=== PATIENT | male | born 1955 | race Caucasian/White ===

== ENCOUNTER 2023-03-12 18:53 | Emergency (ER) | payer MEDICARE, SELFPAY ==
[2023-03-12 18:59] VITALS: BP 163/78; PULSE 87; RESP 18; TEMP 36.4; O2SAT 99; BMI 31.3
--- NOTE | 2023-03-12 19:07 | ECG_ITS ---
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 Measurements Intervals [place] Rate: 68 P: 48 ND: 126 QRS: 18 QRSD: 93 T: 53 QT: 385 QTc: 410 Interpretive Statements SINUS RHYTHM POSSIBLE LEFT ATRIAL ENLARGEMENT [-0.1mV P-WAVE IN V1/V2] SEPTAL MYOCARDIAL INFARCTION , PROBABLY OLD [40+ ms Q WAVE IN V1/V2] No previous ECG available for comparison Electronically Signed On 03-15-2023 6:15:38 CDT by Cyn Rivera M.D. [id number] f
--- NOTE | 2023-03-12 19:24 | XRR_ITS ---
PROCEDURE INFORMATION: Exam: XR Chest Exam date and time: 03/12/2023 7:52 PM Age: 67 years old Clinical indication: Pain; Chest pressure; Additional info: Cp TECHNIQUE: Imaging protocol: Radiologic exam of the chest. Views: 1 view. COMPARISON: No relevant prior studies available. FINDINGS: Lungs: Lungs are clear bilaterally. Pleural spaces: No pleural effusion. No pneumothorax. Heart/Mediastinum: The cardiac silhouette and mediastinal contours are unremarkable. Bones/joints: Unremarkable for age. XR/XR chest 1V portable [id number] IMPRESSION: No acute cardiopulmonary process.
--- NOTE | 2023-03-12 19:37 | W.ED.CHESTPA ---
HPI - Chest Pain General: Chief Complaint: Chest Pain Stated Complaint: Chest Pain Time Seen by Provider: 03/12/23 19:23 Source: patient Mode of arrival: ambulatory Limitations: no limitations History of Present Illness: 67-year-old male who states that he started having some epigastric pain earlier today states had a history of pancreatitis he also has reflux he states he was belching a lot he states the pain is kind of moved up to his chest but is a burning pain rates pain a 6 out of 10 currently denies any worsening proving factors he had some nausea denies any vomiting. Associated symptoms: Reports abdominal pain and nausea; Deny dyspnea, fever(s) or vomiting Review of Systems Const: Denies: fever(s), chills, body aches or change in appetite Eyes: Denies: blurry vision or eye discomfort ENMT: Denies: throat pain or dental pain Card: Reports: chest pain Resp: Denies: dyspnea GI: Reports: abdominal pain and nausea; Denies: vomiting or diarrhea : Denies: dysuria Musc: Denies: neck pain or back pain Skin/Breast: Denies: rash Neuro: Denies: headache(s) Alfred/Lymph: Denies: easy bruising PFSH ED PFSH: Social History (Updated 03/12/23 @ 19:41 by Ana Cristina Hays MD) Substance/Drug Use: never Physical Exam Const: COMMON NORMALS: no acute distress, patient oriented x3 and healthy appearing HENMT: COMMON NORMALS: normocephalic and atraumatic HEAD & SCALP: normocephalic and atraumatic Eye: COMMON NORMALS: Equal, round and reactive pupils present and EOMs intact bilaterally PUPIL: Yes Equal, round and reactive pupils present Neck/C-Spine: COMMON NORMALS: full ROM and supple Chest: COMMONS NORMALS: normal inspection of the chest and normal palpation of entire chest wall Resp: COMMON NORMALS: normal respiratory effort, No retractions, No use of accessory muscles and clear to auscultation bilaterally AUSCULTATION: clear to auscultation bilaterally Cardio: COMMON NORMALS: regular rate, regular rhythm and No murmurs present (Cardio) RATE: regular rate RHYTHM: regular rhythm GI: COMMON NORMALS: Normal to inspection, nondistended, normoactive bowel sounds present, Soft to palpation, non-tender and no masses PALPATION: Yes Soft to palpation Extremity: COMMON NORMALS: normal to inspection and full ROM Neuro: COMMON NORMALS: patient oriented x3, moves all extremities and no focal motor deficits Psych: COMMON NORMALS: mental status grossly normal, Normal thought process present and cooperative THOUGHT PROCESS: Normal thought process present Skin: COMMON NORMALS: no rashes or lesions noted and no wounds GENERAL SKIN EXAM: no rashes or lesions noted Course Vital Signs: Vital signs: Vital Signs Temperature 98.3 F 03/12/23 20:24 Pulse Rate 68 03/12/23 20:24 Respiratory Rate 17 03/12/23 20:24 Blood Pressure 175/88 03/12/23 20:24 Pulse Oximetry 96 03/12/23 20:24 Oxygen Delivery Me thod Room Air 03/12/23 20:24 MDM - Chest Pain Medical Decision Making Patient presents with epigastric abdominal pain likely gastritis he is no signs of acute coronary syndrome his troponins EKGs are normal CT of his abdomen is normal as well. He feels improved here he is stable for discharge he is to take Protonix every lana hydrocodone and Zofran he is to follow-up with PCP in 3 to 4 days and return if worsening. Lab Data 03/12/23 19:40 03/12/23 19:40 Radiology Impressions Chest X-Ray 03/12/23 19:24 IMPRESSION: No acute cardiopulmonary process. Abdomen/Pelvis CT 03/12/23 21:36 IMPRESSION: 1. No acute abnormality in the abdomen or pelvis. 2. Incidental/nonacute findings are listed in the report. COMMENTS: Consistent with the [place] [employer]'s Incidental Findings Committee white paper (J Am Joseph Radiol 2018): Any incidental renal lesion less than 1 cm or classified as too small to characterize, or any incidental cystic renal lesion characterized as simple-appearing, is likely benign. No follow-up imaging is recommended for these lesions per consensus recommendations based on imaging criteria. Laboratory Results WBC 12.1 10^3/uL (4.0-10.0) H 03/12/23 19:40 RBC 4.82 10^6/uL (4.1-5.3) 03/12/23 19:40 Hgb 14.9 g/dL (11.7-16.6) 03/12/23 19:40 Hct 43.9 % (42.0-52.0) 03/12/23 19:40 MCV 91.1 fl (80-94) 03/12/23 19:40 MCH 30.9 pg (28.0-34.0) 03/12/23 19:40 MCHC 33.9 g/dL (30.0-36.0) 03/12/23 19:40 RDW 12.2 % (12.1-15.1) 03/12/23 19:40 Plt Count 279 10^3/cmm (130-400) 03/12/23 19:40 MPV 9.5 fL (7.4-10.4) 03/12/23 19:40 Neut % (Auto) 87.5 % 03/12/23 19:40 Lymph % (Auto) 7.4 % 03/12/23 19:40 [place] % (Auto) 4.3 % 03/12/23 19:40 Eos % (Auto) 0.3 % 03/12/23 19:40 Baso % (Auto) 0.2 % 03/12/23 19:40 Neut # (Auto) 10.56 10^3/uL (1.8-7.7) H 03/12/23 19:40 Lymph # (Auto) 0.9 10^3/uL (0.8-4.8) 03/12/23 19:40 [place] # (Auto) 0.5 10^3/uL (0.2-0.9) 03/12/23 19:40 Eos # (Auto) 0.0 10^3/uL (0.0-0.8) 03/12/23 19:40 Baso # (Auto) 0.0 10^3/uL (0.0-0.1) 03/12/23 19:40 Nucleated RBC % (auto) 0 % 03/12/23 19:40 Nucleated RBCs # 0.0 /100WBC 03/12/23 19:40 Sodium 136 mmol/L (136-145) 03/12/23 19:40 Potassium 4.2 mmol/L (3.5-5.1) 03/12/23 19:40 Chloride 96 mmol/L (98-107) L 03/12/23 19:40 Carbon Dioxide 24 mmol/L (22-29) 03/12/23 19:40 Anion Gap 20.2 (5-19) H 03/12/23 19:40 BUN 25 mg/dL (8-23) H 03/12/23 19:40 Creatinine 1.3 mg/dL (0.7-1.2) H 03/12/23 19:40 GFR Calculation 55.1 mL/min (90-130) L 03/12/23 19:40 Glucose 179 mg/dL (65-115) H 03/12/23 19:40 Calculated Osmolality 291 mOsm/kg (285-295) 03/12/23 19:40 Calcium 9.6 mg/dL (8.5-10.5) 03/12/23 19:40 Total Bilirubin 0.7 mg/dL (0.15-1.2) 03/12/23 19:40 AST 21 U/L (0-40) 03/12/23 19:40 ALT 18 U/L (0-41) 03/12/23 19:40 Alkaline Phosphatase 69 U/L (40-130) 03/12/23 19:40 Troponin T Baseline 6 ng/L (0-15) 03/12/23 19:40 Troponin T 120 Minute 7.06 ng/L (0-15) 03/12/23 21:37 Delta Troponin T 1.06 ABS# (0-10) 03/12/23 21:37 Total Protein 7.8 g/dL (6.6-8.7) 03/12/23 19:40 Albumin 5.0 g/dL (3.5-5.2) 03/12/23 19:40 Globulin 2.8 g/dL (1.3-4.6) 03/12/23 19:40 Lipase 19 U/L (13-60) 03/12/23 19:40 EKG Data EKG 1: I personally reviewed and interpreted this EKG as follows: EKG interpretation date: 03/12/23 EKG interpretation time: 19:03 Interpretation: nsr hr [address] or t wave abnormalities qrs 93 qtc 402 Discharge Plan Discharge Patient Disposition: Home Clinical Impression: Chest pain, Abdominal pain Condition: Stable Prescriptions: New hydrocodone-acetaminophen 5-325 mg tablet 1 tab PO Q6H PRN (Reason: pain) Qty: 14 0RF Protonix 40 mg tablet,delayed release (DR/EC) 40 mg PO DAILY Qty: 60 0RF ondansetron 4 mg tablet,disintegrating 4 mg PO Q6H PRN (Reason: nausea and vomiting) Qty: 14 0RF Discharge Orders: Discharge ED (Routine); Ordered 03/12/23 Ordered By: Ana Cristina Hays Referrals: Gordo Ayala [Primary Care Provider] - Discharge Diet: Advance as tolerated Discharge Activity: Resume usual activity Patient Instructions: Chest Pain (ED), Abdominal Pain (ED), Opioid Safety Coding Level of Care Code ED Operations Team Leader for Celeste Haq
[2023-03-12] MEDS: ondansetron 2 mg/ML SDV 2 mL 4 MG IVP (19:44)
[2023-03-12] MEDS: lidocaine 2% viscous 15 ML, aluminum-mag hydrox-simethicon 30 ML, sucralfate oral liq 1 GM PO (19:45)
[2023-03-12 19:56] LABS: Basophils % 0.2 %; Eosinophils % 0.3 %; Hematocrit 43.9 % (42.0-52.0); Hemoglobin 14.9 g/dL (11.7-16.6); Lymphocytes # 0.9 10^3/uL (0.8-4.8); Lymphocytes % 7.4 %; Mean Corpuscular HGB Conc 33.9 g/dL (30.0-36.0); Mean Corpuscular Hemoglobin 30.9 pg (28.0-34.0); Mean Corpuscular Volume 91.1 fl (80-94); Mean Platelet Volume 9.5 fL (7.4-10.4); Monocytes # 0.5 10^3/uL (0.2-0.9); Monocytes % 4.3 %; Neutrophils # 10.56 10^3/uL (1.8-7.7); Neutrophils % 87.5 %; Nucleated Red Blood Cells % 0 %; Platelet Count 279 10^3/cmm (130-400); Red Blood Count 4.82 10^6/uL (4.1-5.3); Red Cell Distribution Width 12.2 % (12.1-15.1); White Blood Count 12.1 10^3/uL (4.0-10.0)
[2023-03-12 20:24] VITALS: BP 175/88; PULSE 68; RESP 17; TEMP 36.8; O2SAT 96
[2023-03-12 20:43] LABS: Anion Gap 20.2 (5-19); Aspartate Amino Transferase 21 U/L (0-40); Blood Urea Nitrogen 25 mg/dL (8-23); Calcium 9.6 mg/dL (8.5-10.5); Carbon Dioxide 24 mmol/L (22-29); Chloride 96 mmol/L (98-107); Glomerular Filtration Rate 55.1 mL/min (90-130); Glucose 179 mg/dL (65-115); Osmolality Calculated 291 mOsm/kg (285-295); Potassium 4.2 mmol/L (3.5-5.1); Sodium 136 mmol/L (136-145); Total Bilirubin 0.7 mg/dL (0.15-1.2)
[2023-03-12 20:44] LABS: Alanine Aminotransferase 18 U/L (0-41); Alkaline Phosphatase 69 U/L (40-130); Globulin 2.8 g/dL (1.3-4.6); Lipase 19 U/L (13-60); Total Protein 7.8 g/dL (6.6-8.7)
[2023-03-12 21:24] LABS: Troponin(5th) Baseline 6 ng/L (0-15)
--- NOTE | 2023-03-12 21:36 | CTR_ITS ---
PROCEDURE INFORMATION: Exam: CT Abdomen And Pelvis With Contrast Exam date and time: 03/12/2023 9:44 PM Age: 67 years old Clinical indication: Abdominal pain; Generalized; Additional info: Abd pain TECHNIQUE: Imaging protocol: Computed tomography of the abdomen and pelvis with contrast. Radiation optimization: All CT scans at this facility use at least one of these dose optimization techniques: automated exposure control; mA and/or kV adjustment per patient size (includes targeted exams where dose is matched to clinical indication); or iterative reconstruction. Contrast material: OMNI 350; Contrast volume: 100 ml; Contrast route: INTRAVENOUS (IV); REPORTING DATA: Count of CT and Cardiac NM exams in prior 12 months: This patient has received 0 known CTs and 0 known cardiac nuclear medicine studies in the 12 months prior to the current study. COMPARISON: CR (CHEST, ) 03/12/2023 7:52 PM RADIATION DOSE METRICS: Total DLP (mGy-cm): 733.23 FINDINGS: Lungs: Visualized lungs are clear. Calcified granuloma in the left lower lobe. Pleural spaces: No pleural effusion. Heart: Visualized heart is normal in size. Calcification of the aortic valve. Liver: The liver is unremarkable. Gallbladder and bile ducts: The gallbladder is unremarkable. No biliary ductal dilatation. Pancreas: The pancreas is unremarkable. No pancreatic ductal dilatation. Spleen: The spleen is unremarkable. Adrenal glands: The right and left adrenal glands are unremarkable. Kidneys and ureters: Simple cysts in both right and left kidneys. The largest cyst in the right kidney measures 3.8 cm. A left renal cyst measures 9.5 mm. Subcentimeter hypodense foci in both right and left kidneys that are too small to characterize, however likely represent small cysts. The right and left ureters are unremarkable. Stomach and bowel: No obstruction. No mucosal thickening. Appendix: The appendix is visualized and is unremarkable. No findings to suggest acute appendicitis. Intraperitoneal space: No free intraperitoneal air. No ascites. No loculated fluid collections to suggest an abscess. Vasculature: Mild atherosclerotic changes in the visualized arteries. Mild atherosclerotic changes in the visualized arteries. No evidence for aortic aneurysm or aortic dissection. Hepatic veins, portal veins, splenic vein, and SMV are patent. Lymph nodes: No lymphadenopathy. Urinary bladder: Unremarkable as visualized. Reproductive: Unremarkable as visualized. Bones/joints: Degenerative changes in the spine and hips. Mild spinal canal stenosis at L2-L3 through L5-S1. Multilevel foraminal stenosis of varying severity in the lumbar spine. Soft tissues: The extra-abdominal soft tissues are unremarkable. No acute abnormality in the extra-abdominal soft tissues. CT/CT abdomen pelvis w con* [id number] IMPRESSION: 1. No acute abnormality in the abdomen or pelvis. 2. Incidental/nonacute findings are listed in the report. COMMENTS: Consistent with the [place] [employer]'s Incidental Findings Committee white paper (J Am Joseph Radiol 2018): Any incidental renal lesion less than 1 cm or classified as too small to characterize, or any incidental cystic renal lesion characterized as simple-appearing, is likely benign. No follow-up imaging is recommended for these lesions per consensus recommendations based on imaging criteria.
[2023-03-12] MEDS: iohexol 350 mg/mL 500 mL Btl (per mL) IV (21:45)
[2023-03-12 22:14] LABS: Troponin 5 2HR 7.06 ng/L (0-15)
[2023-03-12 22:19] LABS: Troponin 5 2HR Delta 1.06 ABS# (0-10)
[2023-03-12] MEDS: HYDROcodone-acetaminophen 10-325 mg Tablet 1 TAB PO (22:41)
== END 2023-03-12 22:42 | disposition home or self-care (01) ==
PROVIDERS: Emergency Provider Emergency Medicine; PCP Family Medicine
DX: R07.89 Other chest pain (principal); R10.13 Epigastric pain
CPT/HCPCS: 36415; 71045; 74177; 80053; 83690; 84484; 85025; 93005; 96374; 99285; J2405; Q9967